=== PATIENT | male | born 1990 | race Caucasian/White ===

== ENCOUNTER 2021-10-29 10:45 | Emergency (ER) | payer BC ==
[~2021-10-29] VITALS: Ht 304.8 cm; Wt 85.3 kg
== END 2021-10-29 11:19 | disposition home or self-care (01) ==
LOC: ED 10:45
DX: S01.511A Laceration without foreign body of lip, initial encounter (principal); W01.0XXA Fall on same level from slipping, tripping and stumbling without subsequent striking against object, initial encounter; Y93.89 Activity, other specified; Y92.89 Other specified places as the place of occurrence of the external cause; Y99.8 Other external cause status